=== PATIENT | female | born 2000 | race Two or more races ===

== ENCOUNTER 2022-01-30 09:38 | Inpatient (IN) | payer MEDICAID, OTHER ==
[2022-01-30] VITALS (25 sets, daily range): BP systolic 112–140; BP diastolic 62–83
[~2022-01-30] VITALS: Ht 157.5 cm; Wt 54.6 kg
[2022-01-30] MEDS ORDERED: InsuLIN R (HUMAN) 100 UNITS in SODIUM CHL 0.9% 99 ML IV SCH ×2 (10:00→12:45)
[2022-01-30] MEDS ORDERED: DEXTROSE (50%) 50ML SYRG IV PRN ×2 (10:00→12:45)
[2022-01-30] MEDS ORDERED: INSULIN LANTUS (GLARGINE) 1 /0.01ml (100units/ml) SC ONE (10:00)
[2022-01-30] MEDS: SODIUM CHLORIDE 0.9% 1,000 ML IV SCH ×4 (10:37→18:02)
[2022-01-30] MEDS: ACCU-CHEK COMFORT CURVE STRIP VI SCH ×9 (10:38→22:38)
[2022-01-30 10:42] LABS: Hemoglobin 13.1 g/dL (12.2-16.2); Mean Corpuscular Hemoglobin 32.1 pg (28.0-32.0); Mean Corpuscular Hgb Conc. 28.4 g/dL (32.0-36.0); Mean Corpuscular Volume 112.9 fL (80.0-100.0); Red Blood Cells 4.08 10^6/uL (4.0-5.20); Red Cell Distribution Width 14.2 % (11.8-14.3); White Blood Cell 22.3 10^3/uL (4.4-10.8)
[2022-01-30 11:24] LABS: Alcohol, Urine < 3.0 mg/dL (0-10); Amphetamine Screen, Urine NEGATIVE (NEGATIVE); Barbiturate Scree,Urine NEGATIVE (NEGATIVE); Benzodiazephine Screen, Urine NEGATIVE (NEGATIVE); Cannabinoid Screen, Urine NEGATIVE (NEGATIVE); Cocaine Screen, Urine NEGATIVE (NEGATIVE); Opiate Scree,Urine NEGATIVE (NEGATIVE); Phencyclidine Screen, Urine NEGATIVE (NEGATIVE)
[2022-01-30 11:37] LABS: Urine Bacteria NONE SEEN /hpf (None Seen); Urine Blood Negative /uL (Negative); Urine WBC 1 /hpf (0 - 5)
[2022-01-30 11:41] LABS: Basophils % (manual) 0 (0.0-2.0); Blast Cells 0; Eosinophils % (manual) 0 (0-7); Promyelocytes % 0; Reactive Lymphocytes 0
[2022-01-30 12:51] LABS: Band Neutrophils % (manual) 4; Lymphocytes % (manual) 23 (10.0-50.0); Metamyelocytes % 3; Monocytes % (manual) 7 (0-12); Myelocytes % 1
[2022-01-30] MEDS ORDERED: SODIUM BICARBONATE 8.4 % INJ 50ML VIAL IV ONE (13:15)
[2022-01-30] MEDS ORDERED: SODIUM BICARBONATE 50ML VIAL 150 ML in SOD CHL 0.45% 1,000 ML IV ONE (13:15)
[2022-01-30] MEDS ORDERED: cefTRIAXone 1GM/50ML D5W 50 ML IV ONE (13:45)
[2022-01-30] MEDS ORDERED: SODIUM CHLORIDE 0.9% 1,000 ML IV SCH (14:00)
[2022-01-30] MEDS: ONDANSETRON HCL 4 MG/2 ML VIAL IV PRN ×2 (16:11→20:47)
[2022-01-30 16:25] LABS: BUN/Creatinine Ratio 20.3; Calcium 6.6 mg/dL (8.5-10.1); Magnesium 1.9 mg/dL (1.6-2.6); Phosphorus 3.2 mg/dL (2.5-4.90)
[2022-01-30] MEDS: SODIUM BICARBONATE 50ML VIAL 50 ML in SOD CHL 0.45% 1,000 ML IV ONE ×2 (16:33→18:02)
[2022-01-30] MEDS: D5W/SOD CHL 0.45% 1,000 ML IV SCH (19:30)
[2022-01-30] MEDS: InsuLIN R (HUMAN) 100 UNITS in SODIUM CHL 0.9% 99 ML IV SCH ×4 (19:30→22:38)
[2022-01-30 23:31] LABS: Anion Gap 22 (5-15); BUN/Creatinine Ratio 13.4; Blood Urea Nitrogen 16 mg/dL (7-18); Carbon Dioxide 11 mmol/L (21-32); Chloride 116 mmol/L (98-107); GFR African American 73 mL/min; GFR Non-African American 60 mL/min; Glucose 159 mg/dL (74-106); Potassium 3.4 mmol/L (3.5-5.1); Sodium 149 mmol/L (136-145)
[2022-01-31] VITALS (47 sets, daily range): BP systolic 103–145; BP diastolic 55–89
[2022-01-31] MEDS: ACCU-CHEK COMFORT CURVE STRIP VI SCH ×13 (00:03→23:34)
[2022-01-31] MEDS: InsuLIN R (HUMAN) 100 UNITS in SODIUM CHL 0.9% 99 ML IV SCH ×9 (00:06→08:47)
[2022-01-31] MEDS ORDERED: SODIUM BICARBONATE 8.4 % INJ 50ML VIAL IV ONE (01:39)
[2022-01-31] MEDS: ONDANSETRON HCL 4 MG/2 ML VIAL IV PRN (02:30)
[2022-01-31] MEDS ORDERED: VANCOMYCIN PER PHARMACY 0 MG IV SCH (04:15)
[2022-01-31] MEDS ORDERED: VANCOMYCIN 1GM/250ML 250 ML IV ONE (04:30)
[2022-01-31] MEDS: D5W/SOD CHL 0.45% 1,000 ML IV SCH (05:56)
[2022-01-31 06:27] LABS: BUN/Creatinine Ratio 7.5; Basophils # (auto) 0 10 ^3/uL (0-0.2); Basophils % (auto) 0.4 % (0.0-2.0); Calcium 6.8 mg/dL (8.5-10.1); Eosinophils # (auto) 0 10 ^3/uL (0-0.8); Eosinophils % (auto) 0.5 % (0.0-7.0); Hematocrit 33.3 % (36.0-46.0); Hemoglobin 11.1 g/dL (12.2-16.2); Lymphocytes # (auto) 0.5 10 ^3/uL (0.4-5.4); Lymphocytes % (auto) 7.7 % (10.0-50.0); Mean Corpuscular Hemoglobin 32.3 pg (28.0-32.0); Mean Corpuscular Hgb Conc. 33.4 g/dL (32.0-36.0); Mean Corpuscular Volume 96.6 fL (80.0-100.0); Monocytes # (auto) 0.6 10 ^3/uL (0-1.3); Monocytes % (auto) 9.9 % (0.0-12.0); Neutrophils # (auto) 5.3 10 ^3/uL (1.6-8.6); Neutrophils % (auto) 81.5 % (37.0-80.0); Red Blood Cells 3.44 10^6/uL (4.0-5.20); Red Cell Distribution Width 12.7 % (11.8-14.3); White Blood Cell 6.5 10^3/uL (4.4-10.8)
[2022-01-31] MEDS ORDERED: POTASSIUM EFFERVESENT TAB 25 MEQ PO ONE (07:30)
[2022-01-31] MEDS ORDERED: cefTRIAXone 1GM/50ML D5W 50 ML IV SCH (09:00)
[2022-01-31] MEDS ORDERED: ENOXAPARIN SOD 40 MG/0.4 ML SYRINGE SC SCH (10:00)
[2022-01-31] MEDS ORDERED: INSULIN LANTUS (GLARGINE) 1 /0.01ml (100units/ml) SC SCH (10:00)
[2022-01-31] MEDS ORDERED: InsuLIN R (HUMAN) 100 UNITS in SODIUM CHL 0.9% 99 ML IV SCH ×3 (11:15→12:00)
[2022-01-31] MEDS ORDERED: INSULIN LANTUS (GLARGINE) 1 /0.01ml (100units/ml) SC ONE (11:45)
[2022-01-31] MEDS ORDERED: DEXTROSE (50%) 50ML SYRG IV PRN ×2 (11:45→16:00)
[2022-01-31] MEDS: SOD CHL 0.45% WITH 20MEQ KCL 1,000 ML IV SCH (14:29)
[2022-01-31 15:32] LABS: BUN/Creatinine Ratio 6.7; Calcium 6.7 mg/dL (8.5-10.1); Potassium 3.4 mmol/L (3.5-5.1)
[2022-01-31] MEDS ORDERED: VANCOMYCIN 1GM/250ML 250 ML IV SCH (16:00)
[2022-01-31] MEDS: InsuLIN REG 1unit/0.01ml Soln (100units/ml) SC SCH ×2 (17:35→23:35)
[2022-01-31] MEDS: metroNIDAZOLE 500MG/100ML 100 ML IV SCH (22:13)
[2022-02-01] MEDS: SOD CHL 0.45% WITH 20MEQ KCL 1,000 ML IV SCH ×3 (00:15→23:35)
[2022-02-01 05:00] VITALS: BP 112/67
[2022-02-01] MEDS: metroNIDAZOLE 500MG/100ML 100 ML IV SCH (05:35)
[2022-02-01] MEDS: ACCU-CHEK COMFORT CURVE STRIP VI SCH ×4 (05:35→23:06)
[2022-02-01] MEDS: InsuLIN REG 1unit/0.01ml Soln (100units/ml) SC SCH ×4 (05:37→23:16)
[2022-02-01 06:54] LABS: Potassium 3.6 mmol/L (3.5-5.1)
[2022-02-01 06:55] LABS: Basophils # (auto) 0 10 ^3/uL (0-0.2); Basophils % (auto) 0.7 % (0.0-2.0); Eosinophils # (auto) 0 10 ^3/uL (0-0.8); Hematocrit 31.9 % (36.0-46.0); Hemoglobin 10.9 g/dL (12.2-16.2); Lymphocytes # (auto) 1.6 10 ^3/uL (0.4-5.4); Mean Corpuscular Hemoglobin 32.4 pg (28.0-32.0); Mean Corpuscular Hgb Conc. 34.3 g/dL (32.0-36.0); Mean Corpuscular Volume 94.4 fL (80.0-100.0); Monocytes # (auto) 0.3 10 ^3/uL (0-1.3); Monocytes % (auto) 6.8 % (0.0-12.0); Neutrophils # (auto) 2.7 10 ^3/uL (1.6-8.6); Neutrophils % (auto) 57.5 % (37.0-80.0); Nucleated Red Blood Cells % 0.1 %; Red Blood Cells 3.38 10^6/uL (4.0-5.20); Red Cell Distribution Width 12.7 % (11.8-14.3); White Blood Cell 4.8 10^3/uL (4.4-10.8)
[2022-02-01 06:58] LABS: Albumin 2.4 g/dL (3.4-5.0); BUN/Creatinine Ratio 4.9
[2022-02-01 07:00] LABS: Bilirubin, Total 0.6 mg/dL (0.2-1.0); Total Protein 5.4 g/dL (6.4-8.2)
[2022-02-01 09:00] VITALS: BP 124/78
[2022-02-01] MEDS ORDERED: PANTOPRAZOLE 40 MG TAB PO ONE (10:15)
[2022-02-01] MEDS: levoFLOXacin 500MG 100 ML IV SCH (10:20)
[2022-02-01] MEDS: INSULIN LANTUS (GLARGINE) 1 /0.01ml (100units/ml) SC SCH (10:32)
[2022-02-01 13:00] VITALS: BP 136/82
[2022-02-01] MEDS: metroNIDAZOLE 500 MG TAB PO SCH ×2 (15:04→21:36)
[2022-02-01 16:55] VITALS: BP 119/82
[2022-02-01 22:00] VITALS: BP 117/74
[2022-02-02 05:00] VITALS: BP 131/81
[2022-02-02] MEDS: ACCU-CHEK COMFORT CURVE STRIP VI SCH ×3 (05:31→18:07)
[2022-02-02] MEDS: metroNIDAZOLE 500 MG TAB PO SCH ×3 (05:31→21:31)
[2022-02-02] MEDS: InsuLIN REG 1unit/0.01ml Soln (100units/ml) SC SCH ×3 (05:44→18:00)
[2022-02-02 06:18] LABS: Basophils # (auto) 0 10 ^3/uL (0-0.2); Basophils % (auto) 0.7 % (0.0-2.0); Eosinophils # (auto) 0 10 ^3/uL (0-0.8); Eosinophils % (auto) 0.7 % (0.0-7.0); Hematocrit 31.3 % (36.0-46.0); Lymphocytes # (auto) 1.4 10 ^3/uL (0.4-5.4); Lymphocytes % (auto) 36.7 % (10.0-50.0); Mean Corpuscular Hemoglobin 33.2 pg (28.0-32.0); Mean Corpuscular Hgb Conc. 35.1 g/dL (32.0-36.0); Mean Corpuscular Volume 94.7 fL (80.0-100.0); Monocytes # (auto) 0.3 10 ^3/uL (0-1.3); Monocytes % (auto) 8.1 % (0.0-12.0); Neutrophils # (auto) 2.1 10 ^3/uL (1.6-8.6); Neutrophils % (auto) 53.8 % (37.0-80.0); Red Cell Distribution Width 12.5 % (11.8-14.3); White Blood Cell 3.9 10^3/uL (4.4-10.8)
[2022-02-02 06:29] LABS: Potassium 3.1 mmol/L (3.5-5.1)
[2022-02-02 06:37] LABS: Albumin 2.5 g/dL (3.4-5.0); Bilirubin, Total 0.7 mg/dL (0.2-1.0); Calcium 7.4 mg/dL (8.5-10.1); Total Protein 5.4 g/dL (6.4-8.2)
[2022-02-02 09:00] VITALS: BP 121/79
[2022-02-02] MEDS: PANTOPRAZOLE 40 MG TAB PO SCH (11:29)
[2022-02-02] MEDS: levoFLOXacin 500MG 100 ML IV SCH (11:29)
[2022-02-02] MEDS: INSULIN LANTUS (GLARGINE) 1 /0.01ml (100units/ml) SC SCH (11:38)
[2022-02-02 13:00] VITALS: BP 123/83
[2022-02-02] MEDS ORDERED: InsuLIN REG 1unit/0.01ml Soln (100units/ml) SC ONE (13:00)
[2022-02-02] MEDS: SOD CHL 0.45% WITH 20MEQ KCL 1,000 ML IV SCH (13:50)
[2022-02-02] MEDS: ONDANSETRON HCL 4 MG/2 ML VIAL IV PRN (14:05)
[2022-02-02 17:00] VITALS: BP_SYST 116; BP_SYST 125; BP_DIAS 53; BP_DIAS 82
[2022-02-02 22:00] VITALS: BP 110/73
[2022-02-03] MEDS: ACCU-CHEK COMFORT CURVE STRIP VI SCH ×3 (00:18→12:59)
[2022-02-03] MEDS: InsuLIN REG 1unit/0.01ml Soln (100units/ml) SC SCH ×4 (00:29→17:57)
[2022-02-03] MEDS: SOD CHL 0.45% WITH 20MEQ KCL 1,000 ML IV SCH (02:22)
[2022-02-03 05:19] VITALS: BP 114/72
[2022-02-03] MEDS: metroNIDAZOLE 500 MG TAB PO SCH ×2 (05:47→15:00)
[2022-02-03 06:30] LABS: Albumin 2.5 g/dL (3.4-5.0); Potassium 3.4 mmol/L (3.5-5.1)
[2022-02-03 06:34] LABS: BUN/Creatinine Ratio 9.4; Bilirubin, Total 0.9 mg/dL (0.2-1.0); Total Protein 5.6 g/dL (6.4-8.2)
[2022-02-03 09:00] VITALS: BP 134/84
[2022-02-03] MEDS ORDERED: POTASSIUM EFFERVESENT TAB 25 MEQ PO ONE (09:45)
[2022-02-03] MEDS ORDERED: LEVO500T31 PO (09:50)
[2022-02-03] MEDS ORDERED: INSULIN LANTUS (GLARGINE) 1 /0.01ml (100units/ml) SC SCH (10:00)
[2022-02-03] MEDS: PANTOPRAZOLE 40 MG TAB PO SCH (10:31)
[2022-02-03] MEDS: levoFLOXacin 500MG 100 ML IV SCH (10:32)
[2022-02-03 13:00] VITALS: BP 150/94
[2022-02-03 17:00] VITALS: BP 115/82
[2022-02-05 13:03] LABS: Hepatitis B Surface Antibody Positive (Negative)
[2022-02-05 13:37] LABS: Hepatitis A Total Antibody Positive (Negative)
[2022-02-05 20:25] LABS: Hepatitis C Antibody Negative (Negative)
== END 2022-02-03 18:30 | disposition home or self-care (01) | DRG 720 ==
LOC: ER 09:38 → TELE 13:26 → ICU WEST 16:20 → TELE-CENTR 01-31 23:25 → CENTRAL 02-01 00:11
PROVIDERS: ADMIT Registered Nurse; ATTEND Nurse Practitioner Acute Care
DX: A41.9 Sepsis, unspecified organism (principal); G93.41 Metabolic encephalopathy; E10.10 Type 1 diabetes mellitus with ketoacidosis without coma; J15.0 Pneumonia due to Klebsiella pneumoniae; K85.90 Acute pancreatitis without necrosis or infection, unspecified; E87.0 Hyperosmolality and hypernatremia; E87.6 Hypokalemia; K76.0 Fatty (change of) liver, not elsewhere classified; R79.89 Other specified abnormal findings of blood chemistry; R19.7 Diarrhea, unspecified; B95.1 Streptococcus, group B, as the cause of diseases classified elsewhere; Z20.822 Contact with and (suspected) exposure to COVID-19
CPT/HCPCS: 36415; 36556; 36600; 71045; 76705; 80048; 80053; 80307; 81001; 81025; 82010; 82805; 82962; 83036; 83605; 83690; 83735; 83930; 84100; 85007; 85025; 85027; 86038; 86704; 86706; 86708; 86803; 87040; 87045; 87070; 87077; 87081; 87086; 87186; 87205; 87340; 87427; 93005; 96365; 96366; 96367; 96368; 96372; 96376; 99291; G0378; J0696; J1815; J1956; J2405; J3490